=== PATIENT | female | born 2000 | race Caucasian/White ===

== ENCOUNTER 2021-09-02 08:48 | Emergency (ER) | payer MEDICAID, SELFPAY ==
[2021-09-02 08:53] VITALS: BP 123/74; PULSE 104; RESP 16; TEMP 37; O2SAT 98
[2021-09-02 08:59] VITALS: RESP 16
--- NOTE | 2021-09-02 09:40 | ED.GENADUL_ITS ---
Discharge Plan Disposition Patient Disposition: HOME Condition: Stable Discharge Details Clinical Impression: Headache, Post viral syndrome, Nausea & vomiting, COVID-19 Primary Care Provider: Unknown,Unknown ED Provider: Gaby Coronado Home Meds and New Rx's Prescriptions: New ondansetron 4 mg tablet,disintegrating 4 mg PO Q6H Qty: 10 0RF Discharge Instructions Instructions: Acute Nausea and Vomiting (ED), General Headache (ED) Additional Instructions: Take ibuprofen 4 to 600 mg every 6-8 hours as needed for headache You may take Tylenol 500 to 650 mg as needed for breakthrough pain every 6-8 hours You may take Zofran as needed for nausea and vomiting Please be reevaluated in 24 to 48 hours and return earlier should you have new or complaints Stand Alone Forms: Work Release Discharge Data Discharge Date/Time-TO BE ENTERED AT DEPARTURE: 09/02/21 10:08 Medical Decision Making Patient is pale but otherwise appears well, her vitals are stable and she is ambulatory with steady gait She has not hypoxic She denies any chest discomfort. She states that her headache is at its most bothersome to her and has been intermittent, typically alleviated with Tylenol per patient She denies sick contacts At this time I have offered her IV hydration and labs, she has declined and prefers to try outpatient [id number] medications She was given a prescription for antiemetics, Zofran which she will take as needed Of note, approximately an hour after patient departure, her COVID test did come back positive and she was made aware regarding the need to isolate I also spoke to the patient about COVID vaccines and the importance of Return discussed and patient expressed understanding Medical Records Medical records reviewed: Yes I reviewed the patient's medical records. Lab Data Lab results reviewed: Yes I reviewed the patient's lab results. HPI General Date/Time Provider Initiated Documentation: 09/02/21 09:16 . HPI Narrative: This 21-year-old female presents with headache, nausea, vomiting, fatigue. She states that she had a fever 102 2 days prior to arrival. She has not COVID vaccinated. She denies any chance of . She is currently breast- feeding. She denies any rashes or lesions. She denies any known sick contacts. She denies any vision change. She denies any chest discomfort or abdominal pain. Related Data Home Medications Medication Instructions Recorded Confirmed ondansetron 4 mg disintegrating 4 mg PO Q6H #10 tab 09/02/21 tablet Previous Rx's Medication Instructions Recorded ondansetron 4 mg disintegrating 4 mg PO Q6H #10 tab 09/02/21 tablet Allergies Allergy/AdvReac Type Severity Reaction Status Date / Time lactose AdvReac Mild abdominal Verified 09/02/21 09:52 issues General Stated Complaint: GenMedical JOSLYN: 4 Review of Systems All systems reviewed & are unremarkable except as noted in HPI and below PFSH All Active Problems (Updated 09/02/21 @ 12:32 by RODERICK Shelby) Headache (Acute) Post viral syndrome (Acute) Nausea & vomiting (Acute) COVID-19 (Acute) Short stature disorder (Acute 03/13/13) pre-pubertal labs 12/25 Routine child health exam (Acute 03/13/13) Pediatric body mass index (BMI) of 5th percentile to less than 85th percentile for age (Acute 04/14/15) Dysmenorrhea in adolescent (Acute 05/18/16) 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) Constipation (Acute 07/10/13) Anxiety (Acute 09/21/16) Medical History (Updated 09/02/21 @ 12:32 by RODERICK Shelby) Eczema Headache Innocent heart murmur cardio eval with Monty Fallon Short stature (child) Vision problem WEARS GLASSES Surgical History Tooth extraction oral surgery Family History Mother Migraines Hyperlipidemia Mental disorder DEPRESSION, ANXIETY Father Substance abuse ALCOHOL Mental disorder DEPRESSION, ANXIETY Other Diabetes MGF Essential hypertension MGM, MGF, mat uncle Malignant hyperthermia due to anesthesia MGM Heart disease MGF Migraines MGM Hyperlipidemia MGF, MGM Myocardial infarction MGF Neoplasm MGM-breast- BRECA 2 Other Healthy adult on routine physical examination Social History Smoking/Tobacco Use Status: Current every day Tobacco Type: e-cigarettes Smoking risk assessment performed?: Yes Alcohol Intake: never Substance use type: does not use Pets and animals: Yes Pets and animals: dog(s) Do you feel safe at home: Yes Do you feel safe in your relationship?: Yes Exam Const General: cooperative, comfortable and no acute distress HENMT Head: normal to inspection Other: Uvula midline, no tonsillar exudate, no erythema or edema, maintaining secretions, uvula midline Eyes Pupils: PERRL Neck Other: No meningismus Resp Effort & Inspection: normal respiratory effort Auscultation: clear to auscultation bilaterally Cardio Rate: regular rate Rhythm: regular rhythm GI Other: No abdominal tenderness Skin General skin exam: no rashes or lesions noted Neuro General: patient alert and patient oriented x3 Cranial Nerves: CN's II-XI intact bilaterally and tongue midline Sensory Exam: no sensory deficits noted Course Vital Signs Vital signs: Vital Signs Temperature 37.0 C 09/02/21 08:53 Pulse 104 H 09/02/21 08:53 Respiratory Rate 16 09/02/21 08:53 Blood Pressure 123/74 09/02/21 08:53 Pulse Oximetry 98 09/02/21 08:53 Temperature 37.0 C 09/02/21 08:53 Temperature Source Oral 09/02/21 08:53 Pulse 104 H 09/02/21 08:53 Respiratory Rate 16 09/02/21 08:59 Respiratory Effort Non-Labored 09/02/21 08:59 Respiratory Depth Normal 09/02/21 08:59 Respiratory Pattern Normal 09/02/21 08:59 Blood Pressure 123/74 09/02/21 08:53 Blood Pressure Position Sitting 09/02/21 08:53 Pulse Oximetry 98 09/02/21 08:53 Oxygen Delivery Method Room Air 09/02/21 08:53 Oxygen Flow Rate 0 09/02/21 08:53 Pain Level 7 09/02/21 08:53 Lab/Test Results Lab/Test Results: 09/02/21 08:58 Pharynx Group A Streptococcus Culture - Pending POC Strep Test-JABIER(Rapid) Start: 09/02/21 09:15 Freq: Status: Active Protocol: Document 09/02/21 09:15 (Rec: 09/02/21 09:15 [id number]) Strep test-JABIER(Rapid)-POC POC-Strep test-JABIER (Rapid) Negative POC-Strep test-JABIER (Rapid) Negative
[2021-09-02 09:50] LABS: Source Nasal/Nares
[2021-09-02] MEDS: Ibuprofen 400 MG TAB PO (09:52)
[2021-09-02] MEDS: Ondansetron O.D.T. 4 MG TABEF PO (09:52)
[2021-09-02 10:41] LABS: COVID-19 PCR POSITIVE (Negative)
== END 2021-09-02 10:08 | disposition home or self-care (01) ==
PROVIDERS: Emergency Provider Physician Assistant
DX: U07.1 COVID-19 (principal); R51.9 Headache, unspecified; R11.2 Nausea with vomiting, unspecified; R50.9 Fever, unspecified; Z28.310 Unvaccinated for COVID-19
CPT/HCPCS: 87635; 87880; 99283; 87081

== ENCOUNTER 2022-09-11 11:52 | Emergency (ER) | payer MEDICAID, SELFPAY ==
[2022-09-11 11:58] VITALS: BP 121/69; PULSE 99; RESP 20; TEMP 37.2; O2SAT 99
[2022-09-11 14:23] LABS: Bilirubin Negative (Negative); Blood Negative (Negative); Clarity Clear (Clear); Glucose Negative (Negative); Ketones Negative (Negative); Leukocyte Esterase Moderate (Negative); Nitrite Negative (Negative); Specific Gravity 1.025 (1.005-1.025); Urobilinogen 0.2 mg/dL (Up to 0.2)
[2022-09-11 14:30] LABS: Bacteria Few HPF (Negative); C & S Indicated? Yes; Casts Negative LPF (Negative); Crystals Negative HPF (Negative); Epithelial Cells Few HPF (Negative); Mucus Negative (Negative); Other Cells Negative (Negative); RBC Negative HPF (0-2); WBC 20-50 HPF (0-5)
--- NOTE | 2022-09-11 14:58 | W.ED.GENAD ---
Discharge Plan Disposition Patient Disposition: Home Condition: Stable Discharge Details Clinical Impression: UTI (urinary tract infection) ED Provider: Angel Irwin Home Meds and New Rx's Prescriptions: New cephalexin 500 mg tablet 500 mg PO QID Qty: 39 0RF Continued ondansetron 4 mg tablet,disintegrating 4 mg PO Q6H Qty: 10 0RF Discharge Instructions Instructions: Urinary Tract Infection in Women (ED) Additional Instructions: Please take full course of antibiotic as prescribed. Please contact your primary care physician to arrange follow-up. Return to the ER immediately for any worsening or new concerning symptoms. Referrals: Deborah Basilio [Emergency Nurse] - Discharge Data Discharge Date/Time-TO BE ENTERED AT DEPARTURE: 09/11/22 15:20 Medical Decision Making 22-year-old female here with suprapubic abdominal discomfort now with pain in her back. No vaginal symptoms. No dysuria or hematuria. Patient does have suprapubic tenderness. Abdominal exam otherwise benign. Urinalysis consistent with UTI. Suspect early pyelonephritis. Plan to initiate treatment with Keflex and continue 4 times a day for the next 10 days. Usual customary discharge instructions reviewed with the patient. Lab Data Lab results reviewed: Yes I reviewed the patient's lab results. Labs: 09/11/22 13:58 Urine - Reflex from Ua Urine Culture - Final Gram Positive Maribell,Mixed Laboratory Tests Range/Units 09/11/22 13:58 Urine Color (Yellow) Yellow Urine Clarity (Clear) Clear Urine pH (5-8) 6.0 Ur Specific [place] (1.005-1.025) 1.025 Urine Protein (Negative) mg/dL Negative Urine Ketones (Negative) mg/dL Negative Urine Blood (Negative) Negative Urine Nitrite (Negative) Negative Urine Bilirubin (Negative) Negative Urine Urobilinogen (Up to 0.2) mg/dL 0.2 Ur Leukocyte Esterase (Negative) Moderate H Urine RBC (0-2) HPF Negative Urine WBC (0-5) HPF 20-50 H Ur Epithelial Cells (Negative) HPF Few Urine Crystals (Negative) HPF Negative Urine Bacteria (Negative) HPF Few Urine Casts (Negative) LPF Negative Urine Mucus (Negative) Negative Urine Other (Negative) Negative Ur Culture Indicated? Yes Urine Glucose (Negative) mg/dL Negative HPI General Mode of arrival: ambulatory. Date/Time Provider Initiated Documentation: 09/11/22 12:52. Limitations to Documentation: no limitations. HPI Narrative: 22-year-old female presents with chief complaint of abdominal pain. Patient notes bilateral lower abdominal pain that started 5 days ago and has persisted. She has had some associated intermittent nausea. Patient also notes some urinary discomfort. No abnormal vaginal discharge or bleeding. Patient also now notes some pain in her low back bilaterally. Related Data Home Medications Medication Instructions Recorded Confirmed ondansetron 4 mg disintegrating 4 mg PO Q6H #10 tabs 09/02/21 09/11/22 tablet cephalexin 500 mg tablet 500 mg PO QID #39 tabs 09/11/22 Previous Rx's Medication Instructions Recorded ondansetron 4 mg disintegrating 4 mg PO Q6H #10 tabs 09/02/21 tablet cephalexin 500 mg tablet 500 mg PO QID #39 tabs 09/11/22 Allergies Allergy/AdvReac Type Severity Reaction Status Date / Time lactose AdvReac Mild abdominal Verified 09/02/21 09:52 issues General Stated Complaint: Abd Prob JOSLYN: 3 Review of Systems All systems reviewed & are unremarkable except as noted in HPI and below Constitutional Constitutional: Denies fever(s) Gastrointestinal Gastrointestinal: Reports as per HPI Genitourinary Genitourinary: Denies abnormal vaginal bleeding, Denies hematuria, Reports dysuria and Denies vaginal discharge PFSH All Active Problems COVID-19 (Acute) UTI (urinary tract infection) (Acute) Short stature disorder (Acute 03/13/13) pre-pubertal labs 12/25 Routine child health exam (Acute 03/13/13) Pediatric body mass index (BMI) of 5th percentile to less than 85th percentile for age (Acute 04/14/15) Dysmenorrhea in adolescent (Acute 05/18/16) 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) Constipation (Acute 07/10/13) Anxiety (Acute 09/21/16) Medical History Eczema Headache Innocent heart murmur cardio eval with Monty Fallon Short stature (child) Vision problem WEARS GLASSES Surgical History Tooth extraction oral surgery Family History Mother Migraines Hyperlipidemia Mental disorder DEPRESSION, ANXIETY Father Substance abuse ALCOHOL Mental disorder DEPRESSION, ANXIETY Other Diabetes MGF Essential hypertension MGM, MGF, mat uncle Malignant hyperthermia due to anesthesia MGM Heart disease MGF Migraines MGM Hyperlipidemia MGF, MGM Myocardial infarction MGF Neoplasm MGM-breast- BRECA 2 Other Healthy adult on routine physical examination Social History Smoking/Tobacco Use Status: Current every day Tobacco Type: e-cigarettes Smoking risk assessment performed?: Yes Alcohol Intake: never Substance use type: does not use Pets and animals: Yes Pets and animals: dog(s) Do you feel safe at home: Yes Do you feel safe in your relationship?: Yes Exam Const General: cooperative and no acute distress HENMT Mouth: moist mucous membranes Eyes Conjunctivae: normal conjunctivae Sclera: normal sclerae Resp Auscultation: clear to auscultation bilaterally, no rales, no rhonchi and no wheezes Cardio Rate: regular rate and not tachycardic Rhythm: regular rhythm GI Palpation: soft, not firm, no guarding, no masses, not rigid and tender (Bilateral lower abdomen) suprapubicly; with no rebound tenderness and Rovsing's sign negative Auscultation: normal bowel sounds Back/Spine/Pelvis Back: CVA tenderness (Mild lower left) Skin General skin exam: no rashes or lesions noted Neuro General: patient alert, patient awake, patient oriented x3 and tone normal Extrem General: no edema Psych Appearance: grossly normal Mental Status: mental status grossly normal Course Vital Signs Vital signs: Vital Signs Temperature 37.2 C 09/11/22 11:58 Pulse 99 H 09/11/22 11:58 Respiratory Rate 20 09/11/22 11:58 Blood Pressure 121/69 09/11/22 11:58 Pulse Oximetry 99 09/11/22 11:58 Temperature 37.2 C 09/11/22 11:58 Temperature Source Temporal Artery Scan 09/11/22 11:58 Pulse 99 H 09/11/22 11:58 Respiratory Rate 20 09/11/22 11:58 Blood Pressure 121/69 09/11/22 11:58 Blood Pressure Position Sitting 09/11/22 11:58 Pulse Oximetry 99 09/11/22 11:58 Oxygen Delivery Method Room Air 09/11/22 11:58 Oxygen Flow Rate 0 09/11/22 11:58 Lab/Test Results Lab/Test Results: 09/11/22 13:58 Urine - Reflex from Ua Urine Culture - Pending Laboratory Tests Range/Units 09/11/22 13:58 Urine Color (Yellow) Yellow Urine Clarity (Clear) Clear Urine pH (5-8) 6.0 Ur Specific [place] (1.005-1.025) 1.025 Urine Protein (Negative) mg/dL Negative Urine Ketones (Negative) mg/dL Negative Urine Blood (Negative) Negative Urine Nitrite (Negative) Negative Urine Bilirubin (Negative) Negative Urine Urobilinogen (Up to 0.2) mg/dL 0.2 Ur Leukocyte Esterase (Negative) Moderate H Urine RBC (0-2) HPF Negative Urine WBC (0-5) HPF 20-50 H Ur Epithelial Cells (Negative) HPF Few Urine Crystals (Negative) HPF Negative Urine Bacteria (Negative) HPF Few Urine Casts (Negative) LPF Negative Urine Mucus (Negative) Negative Urine Other (Negative) Negative Ur Culture Indicated? Yes Urine Glucose (Negative) mg/dL Negative POC- Test(urine) Negative
[2022-09-11] MEDS: Cephalexin 500 MG CAP PO (15:09)
[2022-09-11 15:15] VITALS: BP 115/62; PULSE 82; RESP 18; TEMP 36.8; O2SAT 99
== END 2022-09-11 15:20 | disposition home or self-care (01) ==
PROVIDERS: Emergency Provider Student in an Organized Health Care Education/Training Program
DX: N39.0 Urinary tract infection, site not specified (principal)
CPT/HCPCS: 81025; 99283; 81003; 81015; 87086; 99284

== ENCOUNTER 2023-01-25 17:25 | Emergency (ER) | payer MEDICAID, SELFPAY ==
--- NOTE | 2023-01-25 17:34 | ED.GENADUL_ITS ---
Discharge Plan Disposition Patient Disposition: Home Discharge Details Clinical Impression: Abdominal pain, Acute right lower quadrant pain Primary Care Provider: Roxanne Espana ED Provider: Patti Ryan Home Meds and New Rx's Prescriptions: No Action No Known Home Meds Discharge Instructions Instructions: Pelvic Pain in Women (ED), Abdominal Pain (ED) Additional Instructions: 1. Call your AUDIO TAPE LIBRARIAN in the morning for a follow-up appointment and recheck. 2. Alternate 1000 mg of acetaminophen every 3 hours with 400 to 600 mg of ibuprofen as needed for pain. 3. Return to the emergency department for any new or worrisome symptoms such as increasing pain fever chills or any concerns. Discharge Data Discharge Physician: Patti Ryna Medical Decision Making This is a 22-year-old female who presents with acute right lower quadrant pain. The patient is trying to get and is not using control. I am concerned she could have an ectopic . She did have a negative urine but there is a small chance that it was a false negative so we will obtain a serum . She denies any fever or chills. She has had vomiting but no diarrhea. She denies any previous similar episodes. She had a normal bowel movement today at 3:00. She did try taking 400 mg of ibuprofen without any relief. My plan is to obtain a serum qualitative hCG and if negative we will obtain a CT scan of the abdomen and pelvis with IV contrast. If her hCG is positive I will consult AUDIO TAPE LIBRARIAN. We will give her IV fluids and IV acetaminophen and ketorolac for pain. We will also check a urine for UTI. Differential Diagnosis Differential Diagnosis: Ectopic , mittelschmerz, appendicitis, ovarian cyst Medical Records Medical records reviewed: Yes I reviewed the patient's medical records. Imaging Data Radiologic Study: Imaging: CT Scan (CT abdomen pelvis with IV contrast) Radiologist's impression: No acute findings. Lab Data Lab results reviewed: Yes I reviewed the patient's lab results. Lab results narrative: No significant lab findings. Mild thrombocytosis HPI General Date/Time Provider Initiated Documentation: 01/25/23 17:34 . Limitations to Documentation: no limitations . Information obtained by: patient, RN notes reviewed and old records reviewed . HPI Narrative: Time seen was 1814 in bed 7. The patient is a 22-year-old -0-0-1 whose last menstrual period was 12/08/2022 who presents with right lower quadrant pain. She is tells me that the pain has been intermittent for several weeks and began and remains in the right lower quadrant. She states that the pain became constant yesterday and worsens over the last 12 to 24 hours. The patient is trying to get and has 1 partner and does not use control. The patient usually has regular.'s. She describes the pain as constant and fluctuating in severity from 5-7 out of 10. It is located in the right lower quadrant and is described as stabbing. The patient states the pain is constant but fluctuates in severity. It is aggravated by eating and sitting. Last week she had 1 day of nausea vomiting and diarrhea. She has not vomited for a week. She denies any change in bowel habits her last bowel movement was today at 3 PM and was normal. She denies any previous similar episodes. She denies any fevers or chills. She has no prior history of abdominal surgeries. She denies any dysuria or vaginal discharge. She tells me she only has 1 partner. Related Data Home Medications Medication Instructions Recorded Confirmed Unknown [No Known Home Meds] 01/25/23 01/25/23 Allergies Allergy/AdvReac Type Severity Reaction Status Date / Time lactose AdvReac Mild abdominal Verified 09/02/21 09:52 issues General JOSLYN: 3 Review of Systems Narrative: see hpi Constitutional Constitutional: Denies chills, Denies fever(s), Denies frequent falls and Denies headache(s) Eyes Eyes: Denies blurry vision and Denies change in vision ENT Ears, Nose, Mouth, and Throat: Denies facial pain, Denies headache(s) and Denies nasal congestion Cardiovascular Cardiovascular: Denies chest pain and Denies dyspnea Respiratory Respiratory: Denies cough and Denies dyspnea Gastrointestinal Gastrointestinal: Reports as per HPI, Reports abdominal pain, Denies hematochezia and Denies change in bowel habits Genitourinary Genitourinary: Reports as per HPI and Denies vaginal discharge Musculoskeletal Musculoskeletal: Reports system reviewed and no additional complaints, except as documented Neurologic Neurologic: Reports system reviewed and no additional complaints, except as documented, Denies frequent falls and Denies headache(s) Endocrine Endocrine: Reports system reviewed and no additional complaints, except as documented PFSH All Active Problems (Updated 01/25/23 @ 21:26 by Patti Ryan MD) COVID-19 (Acute) Abdominal pain (Acute) Acute right lower quadrant pain (Acute) Short stature disorder (Acute 03/13/13) pre-pubertal labs 12/25 Routine child health exam (Acute 03/13/13) Pediatric body mass index (BMI) of 5th percentile to less than 85th percentile for age (Acute 04/14/15) Dysmenorrhea in adolescent (Acute 05/18/16) 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) Constipation (Acute 07/10/13) Anxiety (Acute 09/21/16) Medical History (Updated 01/25/23 @ 21:26 by Patti Ryan MD) Eczema Headache Innocent heart murmur cardio eval with Monty Fallon Short stature (child) Vision problem WEARS GLASSES Surgical History Tooth extraction oral surgery Family History Mother Migraines Hyperlipidemia Mental disorder DEPRESSION, ANXIETY Father Substance abuse ALCOHOL Mental disorder DEPRESSION, ANXIETY Other Diabetes MGF Essential hypertension MGM, MGF, mat uncle Malignant hyperthermia due to anesthesia MGM Heart disease MGF Migraines MGM Hyperlipidemia MGF, MGM Myocardial infarction MGF Neoplasm MGM-breast- BRECA 2 Other Healthy adult on routine physical examination Social History Smoking/Tobacco Use Status: Current every day Tobacco Type: e-cigarettes Smoking risk assessment performed?: Yes Alcohol Intake: never Substance use type: does not use Pets and animals: Yes Pets and animals: dog(s) Do you feel safe at home: Yes Do you feel safe in your relationship?: Yes Exam Const General: cooperative, healthy appearing, comfortable, no acute distress, well developed, well groomed and well hydrated Nutritional Appearance: average body habitus and well nourished Orientation: alert, awake and oriented x3 HENMT Head: normal to inspection, normocephalic and atraumatic Ears: hearing grossly normal bilaterally and external ears normal General nose exam: external nose normal, nares normal and no nasal discharge Face and sinus: normal facial exam, sinuses nontender and face symmetric Mouth: oral mucosae normal, lip normal, tongue normal, oropharynx normal, moist mucous membranes and other (Normal phonation. The patient is handling secretions.) Throat: posterior oropharynx normal and uvula midline Eyes General: appearance normal, both eyes and all related structures Eyelids: eyelids normal Conjunctivae: conjunctivae normal Sclera: sclerae normal Cornea: corneas normal Pupils: PERRL EOM: EOM intact bilaterally and No nystagmus Neck Neck: normal visual inspection, full ROM, no lymphadenopathy, no meningeal signs, trachea midline and supple Lymphatic: no lymphadenopathy noted Chest Chest: normal inspection of the chest Resp Effort & Inspection: normal respiratory effort, able to speak in complete sentences, no audible wheezes, no nasal flaring, no respiratory distress, no retractions, no stridor, not tachypneic, no tracheal deviation, no use of accessory muscles, No prolonged expiratory phase and other (Normal inspiratory to expiratory ratio.) Auscultation: clear to auscultation bilaterally, no rales, no rhonchi, no wheezes and no rubs Tactile Fremitus: tactile fremitus absent Cardio Jugular venous pressure: no JVD Palpation: normal PMI Rate: regular rate Rhythm: regular rhythm Heart Sounds: S1 normal, S2 normal, no gallops, no murmurs and no rubs GI Inspection: normal to inspection and non-distended Palpation: soft, no hepatosplenomegaly, no guarding and tender Percussion: normal to percussion Auscultation: normal bowel sounds Other: The patient does have pain in the right lower quadrant and a positive psoas and obturator sign. No rebound or guarding. Positive Rovsing sign General: No CVA tenderness Other: Normal external genitalia Back/Spine/Pelvis Back: no CVA tenderness and No back tenderness Cervical Spine: normal cervical lordosis, cervical ROM normal, No cervical muscular tenderness, No pain with cervical ROM, No cervical spinal tenderness and No step off deformity Thoracic/Lumbar Spine: thoracic and lumbar spine normal to inspection, No thoracic spinal tenderness and No lumbar spinal tenderness Pelvis: no pain with anterior-posterior compression and no pain with lateral compression Skin General skin exam: no rashes or lesions noted, turgor normal, no petechiae, no purpura and other (Skin is normal for ethnicity.) Lesions: no lesions Rashes: no rashes Trauma: no lacerations or abrasions Neuro General: patient alert, patient awake, patient oriented x3, moves all ex tremities, no meningeal signs, no focal motor deficits and CN's II-XI intact bilaterally Cranial Nerves: CN's II-XI intact bilaterally, PERRL, accommodation normal, EOM intact bilaterally, no nystagmus, facial strength normal, tongue midline, hearing normal and no nystagmus Cognition: normal cognition Speech: speech normal Motor: muscle tone normal throughout and strength 5/5 throughout Sensory Exam: no sensory deficits noted Extrem General: normal to inspection, full ROM, capillary refill normal, no clubbing, cyanosis or edema and no calf tenderness Psych Appearance: grossly normal Affect: normal affect Attitude: cooperative Thought Process: normal Thought Content: normal Insight: insight good Judgment: judgment good Other: The patient appears to have capacity make medical decisions. Course Reevaluation(s) Time: 19:43 Reevaluation: I have updated the patient on the serum being negative and I have ordered a CT of the abdomen and pelvis with IV contrast. The patient is requesting to use the bathroom Time: 21:27 Reevaluation #2: Patient feels improved and ready for discharge. I have reviewed her lab and CT findings. The patient does have a AUDIO TAPE LIBRARIAN who she tells me she called twice and they told her to wait it out. I have advised the patient to call in the morning and make an appointment for recheck and to return here for any new or worrisome symptoms. I have advised her to alternate acetaminophen every 3 hours with ibuprofen as needed for pain. The patient voiced understanding agree with the discharge plan. All her questions and concerns were addressed prior to discharge Critical Care Time Critical Care Time Total Critical Care Time: 27 Attestation: This includes time at the bedside review of labs and radiographs
[2023-01-25 17:42] VITALS: BP 132/98; PULSE 82; RESP 18; TEMP 36.6; O2SAT 100
[2023-01-25 18:00] LABS: Bilirubin Negative (Negative); Blood Trace-intact (Negative); Clarity Clear (Clear); Glucose Negative (Negative); Ketones Trace mg/dL (Negative); Leukocyte Esterase Negative (Negative); Nitrite Negative (Negative); Specific Gravity >= 1.030 (1.005-1.025)
[2023-01-25 18:21] LABS: Bacteria Rare HPF (Negative); C & S Indicated? No; Casts Negative LPF (Negative); Crystals Negative HPF (Negative); Epithelial Cells Rare HPF (Negative); Mucus Negative (Negative); WBC 0-2 HPF (0-5)
[2023-01-25] MEDS: Ketorolac 15 MG/ML VIAL IVP (18:53)
[2023-01-25] MEDS: Normal Saline 1,000 ML 1000 ML IV ×2 (18:53→20:07)
[2023-01-25] MEDS: ACETAMINOPHEN 1,000 MG/100 ML BTL 400 MG IVPB (18:54)
[2023-01-25 19:15] LABS: ALT 17 U/L (14-59); AST 11 U/L (15-37); Albumin 4.7 g/dL (3.4-5.0); Alkaline Phosphatase 65 U/L (46-116); Anion Gap 9.9 mmol/L (3-11); BUN 13 mg/dL (7-18); Bilirubin, Total 0.3 mg/dL (0.2-1.0); CO2 27.1 mmol/L (21.0-32.0); CREATININE 0.8 mg/dL (0.55-1.02); Chloride 102 mmol/L (98-107); Estimated GFR 107.44 (mL/min/1.73m2); Glucose 86 mg/dL (74-106); Potassium 3.6 mmol/L (3.5-5.1); Sodium 139 mmol/L (136-145); Total Protein 8.7 g/dL (6.4-8.2)
[2023-01-25 19:17] LABS: HCG Qual (Serum) Negative
--- NOTE | 2023-01-25 19:30 | DI.CT_ITS ---
Exam(s) CT ABDOMEN PELVIS W EXAM: CT ABDOMEN PELVIS W CLINICAL HISTORY: RLQ pain TECHNIQUE: Imaging Protocol: Axial computed tomography images with coronal and sagittal reformatted images were created and reviewed CONTRAST MATERIAL: Intravenous: Omnipaque 350 Contrast volume:90 mL Oral: No COMPARISON: No exams were available for comparison FINDINGS: ABDOMEN: Lung Bases: Normal where visualized. Liver: Normal density. No measurable mass. Portal, Superior Mesenteric, and Splenic Veins: Unremarkable. Gallbladder and Biliary Tract: No radiodense calculus or dilation. Pancreas: Normal density, no abnormal calcifications or inflammatory process. Spleen: Normal. Adrenals: No masses seen. Kidneys: Normal size, contour and axis. No radiodense stones or obstructive uropathy. No masses seen. Abdominal Aorta: Abdominal portion non-dilated. Bowel: No obstruction or bowel wall thickening. Appendix is unremarkable. Peritoneal Cavity: No ascites, collection or mesenteric inflammatory response. No free air. Lymph Nodes: Within normal limits. Bones: Within normal limits for the patient's age. Soft Tissues: Unremarkable. PELVIS: Bladder: Symmetric distention, no gross wall thickening. Reproductive Organs: Unremarkable as visualized. Lymph Nodes: Within normal limits. Bones: Within normal limits for the patient's age. IMPRESSION: 1. No acute abdominal or pelvic process. 2. Normal appendix. RADIATION DOSE DELIVERED: 573.07mGy.cm Total DLP DATA REPOSITORY: All CT scans at this facility are submitted to the National Radiology Data Registry (NRDR) Dose Index Registry (DIR) with the [employer] (ACR). RADIATION OPTIMIZATION: All CT scans at this facility use at least one of these dose optimization te chniques: automated exposure control; mA and/or kV adjustment per patient size (includes targeted exa ms where dose is matched to clinical indication); or iterative reconstruction.
[2023-01-25] MEDS: Normal Saline - Diluent 50 ML VIAL IJ (20:24)
[2023-01-25] MEDS: Omnipaque 350 MG/ML 100 ML BTL IJ (20:25)
[2023-01-25] MEDS: Normal Saline Flush 10 ML SYR IVP (20:25)
--- NOTE | 2023-01-25 21:08 | DI.VRAD_ITS ---
PROCEDURE INFORMATION: Exam: CT Abdomen And Pelvis With Contrast Exam date and time: 01/25/2023 8:31 PM Age: 22 years old Clinical indication: Pain; Other: Rlq TECHNIQUE: Imaging protocol: Computed tomography of the abdomen and pelvis with contrast. Contrast material: OMNIPAQUE 350; Contrast volume: 100 ml; Contrast route: INTRAVENOUS (IV); COMPARISON: No relevant prior studies available. FINDINGS: Liver: Normal. No mass. Gallbladder and bile ducts: Normal. No calcified stones. No ductal dilation. Pancreas: Normal. No ductal dilation. Spleen: Normal. No splenomegaly. Adrenal glands: Normal. No mass. Kidneys and ureters: Normal. No hydronephrosis. Stomach and bowel: Unremarkable. No obstruction. No mucosal thickening. Appendix: No evidence of appendicitis. Intraperitoneal space: Unremarkable. No free air. No significant fluid collection. Vasculature: Unremarkable. No abdominal aortic aneurysm. Lymph nodes: Unremarkable. No enlarged lymph nodes. Urinary bladder: Unremarkable as visualized. Reproductive: Unremarkable as visualized. Bones/joints: Unremarkable. No acute fracture. Soft tissues: Unremarkable. IMPRESSION: No acute findings. Dictated and Authenticated by: Eyad Graham MD. Ordering:GUTIERREZ Armstrong MD
[2023-01-25 21:38] VITALS: BP 111/69; PULSE 68; RESP 16; TEMP 36.8; O2SAT 98
== END 2023-01-25 21:40 | disposition home or self-care (01) ==
PROVIDERS: Emergency Provider Emergency Medicine Emergency Medical Services; PCP Physician Assistant
DX: R10.31 Right lower quadrant pain (principal); R11.2 Nausea with vomiting, unspecified; F17.290 Nicotine dependence, other tobacco product, uncomplicated
CPT/HCPCS: 36415; 80053; 81025; 96361; 96365; 96375; 99285; 74177; 81003; 81015; 84703; J0131; J1885; J3490

== ENCOUNTER 2023-01-26 15:24 | Emergency (ER) | payer MEDICAID, SELFPAY ==
[2023-01-26 15:35] VITALS: BP 122/73; PULSE 84; RESP 18; TEMP 36.8; O2SAT 100
--- NOTE | 2023-01-26 16:07 | W.ED.GENAD ---
Discharge Plan Disposition Patient Disposition: Home Condition: Stable Discharge Details Clinical Impression: Abdominal pain Primary Care Provider: Roxanne Espana ED Provider: Fransisca Andrade Home Meds and New Rx's Prescriptions: No Action No Known Home Meds Discharge Instructions Instructions: Abdominal Pain (ED) Additional Instructions: After reviewing the CT images, the contrast may have masked kidney stones which may be causing pain. Your labs are largely within normal limits. No evidence of infection. You did have some blood in your urine yesterday. Please take Tylenol or Ibuprofen with food every 4-6 hours as needed for pain and swelling. Follow up with primary care provider in 3-5 days. Return to ED sooner if any worsening or concerns. Increase oral fluids. Take the nausea medications as directed. Referrals: Roxanne Espana MD [Primary Care Provider] - 3 days Discharge Data Discharge Date/Time-TO BE ENTERED AT DEPARTURE: 01/26/23 17:35 Medical Decision Making 22-year-old female presents to the ER for the second day in 48 hours with chief complaint of worsening abdominal pain which is now radiated over to the left lower quadrant. She reports that she does have some lower back pain right lower quadrant abdominal pain and left lower quadrant abdominal pain. She reports nausea no vomiting no diarrhea no dysuria. She has not had a period since December 08 which is not normal for her. She did have a CT abdomen pelvis yesterday which was read as negative. She did have trace blood in her urinalysis 5-10 RBCs. We will repeat labs. I did discuss that sometimes with IV contrast a kidney stone can be missed. Due to the trace blood in her urine this may be possible. Discussed follow-up care with patient and mom. Discussed lab results and home care. They verbalized understanding all their questions were answered to the best my ability. This text was generated using [employer] system, please disregard any oddities of phrase or misspellings. Lab Data Lab results reviewed: Yes I reviewed the patient's lab results. Labs: Laboratory Tests Range/Units 01/26/23 01/26/23 16:34 16:34 WBC (4.4-10.8) 10^3/uL 9.26 RBC (3.93-5.22) 10^6/uL 4.90 Hgb (11.2-15.7) g/dL 13.8 Hct (36.0-46.0) % 40.9 MCV (80-95) fL 84 MCH (27.0-33.0) pg 28.2 MCHC (32.0-36.0) % 33.7 RDW (11.7-14.6) % 12.9 Plt Count (130-400) 10^3/uL 395 MPV (8.0-11.0) fL 9.3 Immature Gran % 0.3 Neutrophils % 61.7 Lymphocytes % 29.4 Monocytes % 6.7 Eosinophils % 1.3 Basophils % 0.6 Nucleated RBC % (0.0-0.3) % 0.0 Absolute Neutrophils (1.2-6.7) 10^3/uL 5.71 Absolute Lymphocytes (1.2-3.4) 10^3/uL 2.72 Absolute Monocytes (0.1-0.8) 10^3/uL 0.62 Absolute Eosinophils (0.0-0.7) 10^3/uL 0.12 Absolute Basophils (0.0-0.2) 10^3/uL 0.06 Sodium (136-145) mmol/L 140 Potassium (3.5-5.1) mmol/L 3.5 Chloride (98-107) mmol/L 104 Carbon Dioxide (21.0-32.0) mmol/L 26.3 Anion Gap (3-11) mmol/L 9.7 BUN (7-18) mg/dL 6 L Creatinine (0.55-1.02) mg/dL 0.6 Est GFR (CKD-EPI 2020) (mL/min/1.73m2) 130.88 Glucose (74-106) mg/dL 83 Calcium (8.5-10.1) mg/dL 9.7 Magnesium (1.8-2.4) mg/dL 2.3 Total Bilirubin (0.2-1.0) mg/dL 0.3 AST (15-37) U/L 13 L ALT (14-59) U/L 16 Alkaline Phosphatase (46-116) U/L 60 Total Protein (6.4-8.2) g/dL 8.1 Albumin (3.4-5.0) g/dL 4.5 Lipase (16-77) U/L 33 HPI General Mode of arrival: ambulatory. Date/Time Provider Initiated Documentation: 01/26/23 15:43. Limitations to Documentation: no limitations. Information obtained by: patient, RN notes reviewed and old records reviewed. HPI Narrative: 22-year-old female presents to the ER for the second day in 48 hours with chief complaint of worsening abdominal pain which is now radiated over to the left lower quadrant. She reports that she does have some lower back pain right lower quadrant abdominal pain and left lower quadrant abdominal pain. She reports nausea no vomiting no diarrhea no dysuria. She has not had a period since December 08 which is not normal for her. She did have a CT abdomen pelvis yesterday which was read as negative. She did have trace blood in her urinalysis 5-10 RBCs. Related Data Home Medications Medication Instructions Recorded Confirmed Unknown [No Known Home Meds] 01/25/23 01/25/23 Allergies Allergy/AdvReac Type Severity Reaction Status Date / Time lactose AdvReac Mild abdominal Verified 09/02/21 09:52 issues General Stated Complaint: Abd Prob JOSLYN: 3 Review of Systems All systems reviewed & are unremarkable except as noted in HPI and below PFSH All Active Problems (Updated 01/26/23 @ 17:05 by Fransisca Andrade NP) COVID-19 (Acute) Abdominal pain (Acute) Acute right lower quadrant pain (Acute) Abdominal pain (Acute) Short stature disorder (Acute 03/13/13) pre-pubertal labs 12/25 Routine child health exam (Acute 03/13/13) Pediatric body mass index (BMI) of 5th percentile to less than 85th percentile for age (Acute 04/14/15) Dysmenorrhea in adolescent (Acute 05/18/16) 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) Constipation (Acute 07/10/13) Anxiety (Acute 09/21/16) Medical History (Updated 01/26/23 @ 17:05 by Fransisca Andrade NP) Eczema Headache Innocent heart murmur cardio eval with Monty Fallon Short stature (child) Vision problem WEARS GLASSES Surgical History Tooth extraction oral surgery Family History Mother Migraines Hyperlipidemia Mental disorder DEPRESSION, ANXIETY Father Substance abuse ALCOHOL Mental disorder DEPRESSION, ANXIETY Other Diabetes MGF Essential hypertension MGM, MGF, mat uncle Malignant hyperthermia due to anesthesia MGM Heart disease MGF Migraines MGM Hyperlipidemia MGF, MGM Myocardial infarction MGF Neoplasm MGM-breast- BRECA 2 Other Healthy adult on routine physical examination Social History Smoking/Tobacco Use Status: Current every day Tobacco Type: e-cigarettes Smoking risk assessment performed?: Yes Alcohol Intake: never Substance use type: does not use Housing: house Pets and animals: Yes Pets and animals: dog(s) Do you feel safe at home: Yes Do you feel safe in your relationship?: Yes Exam Narrative Exam Narrative: Constitutional: Alert and oriented x3. Appears stated age. Normal body habitus. Head: Normocephalic, no trauma. Eyes: Pupils PERRL, Red reflex noted, EOM's intact. Eyelids symmetrical without lesions, discharge, or swelling. ENT: Bilateral TM's WNL, External ear normal to inspection, no mastoid TTP, swelling, or erythema, Nasal turbinates WNL, no nasal discharge. Normal dentition, Posterior pharynx WNL, no exudate. Chest: RRR, Normal S1, S2, distal pulses intact. Resp: Lungs clear to auscultation bilaterally, no wheezes, rales, or rhonchi. Abdomen: Soft, non-distended, Normoactive bowel sounds all 4 quads. Tenderness right lower quadrant and left lower quadrant with palpation. No guarding no masses palpated. Musculoskeletal: Normal gait, 5/5 strength to all four extremities. Skin: No suspicious rashes or lesions. Capillary refill less than 2 sec. Neurologic: Cranial nerves II-XII intact. Alert and oriented x 3. Motor: No deficits noted. Sensory: Intact bilaterally all 4 extremities. Hematologic/Lymphatic: No ecchymosis, no lymphadenopathy. Course Vital Signs Vital signs: Vital Signs Temperature 36.8 C 01/26/23 15:35 Pulse 84 01/26/23 15:35 Respiratory Rate 18 01/26/23 15:35 Blood Pressure 122/73 01/26/23 15:35 Pulse Oximetry 100 01/26/23 15:35 Temperature 36.8 C 01/26/23 15:35 Temperature Source Oral 01/26/23 15:35 Pulse 84 01/26/23 15:35 Respiratory Rate 18 01/26/23 15:35 Blood Pressure 122/73 01/26/23 15:35 Blood Pressure Position Sitting 01/26/23 15:35 Pulse Oximetry 100 01/26/23 15:35 Oxygen Delivery Method Room Air 01/26/23 15:35 Oxygen Flow Rate 0 01/26/23 15:35 Pain Level 6 01/26/23 15:35 Lab/Test Results Lab/Test Results: POC- Test(urine) Negative
[2023-01-26 16:41] LABS: Abs Immature Grans 0.03 10^3/uL (0.0-0.06); Absolute Basophil Count 0.06 10^3/uL (0.0-0.2); Absolute Eosinophil Count 0.12 10^3/uL (0.0-0.7); Absolute Lymphocyte Count 2.72 10^3/uL (1.2-3.4); Absolute Monocyte Count 0.62 10^3/uL (0.1-0.8); Absolute Neutrophil Count 5.71 10^3/uL (1.2-6.7); Basophils % 0.6; Eosinophils % 1.3; HCT 40.9 % (36.0-46.0); HGB 13.8 g/dL (11.2-15.7); Immature Grans % 0.3; Lymphocytes % 29.4; MCH 28.2 pg (27.0-33.0); MCHC 33.7 % (32.0-36.0); MCV 84 fL (80-95); MPV 9.3 fL (8.0-11.0); Monocytes % 6.7; Neutrophils % 61.7; Platelet Count 395 10^3/uL (130-400); RDW 12.9 % (11.7-14.6); RDW-SD 39.5 fL; WBC 9.26 10^3/uL (4.4-10.8)
[2023-01-26 16:59] LABS: ALT 16 U/L (14-59); AST 13 U/L (15-37); Albumin 4.5 g/dL (3.4-5.0); Alkaline Phosphatase 60 U/L (46-116); Anion Gap 9.7 mmol/L (3-11); BUN 6 mg/dL (7-18); Bilirubin, Total 0.3 mg/dL (0.2-1.0); CO2 26.3 mmol/L (21.0-32.0); CREATININE 0.6 mg/dL (0.55-1.02); Calcium 9.7 mg/dL (8.5-10.1); Chloride 104 mmol/L (98-107); Estimated GFR 130.88 (mL/min/1.73m2); Glucose 83 mg/dL (74-106); Lipase 33 U/L (16-77); Magnesium 2.3 mg/dL (1.8-2.4); Potassium 3.5 mmol/L (3.5-5.1); Sodium 140 mmol/L (136-145); Total Protein 8.1 g/dL (6.4-8.2)
[2023-01-26 17:34] VITALS: BP 124/78; PULSE 75; RESP 18; TEMP 36.8; O2SAT 98
== END 2023-01-26 17:35 | disposition home or self-care (01) ==
PROVIDERS: Emergency Provider Registered Nurse Emergency; PCP Physician Assistant
DX: R10.30 Lower abdominal pain, unspecified (principal)
CPT/HCPCS: 36415; 80053; 81025; 83690; 99283; 83735; 85025; 99284

== ENCOUNTER 2023-07-03 17:10 | Emergency (ER) | payer MEDICAID, SELFPAY ==
[2023-07-03 17:29] VITALS: BP 107/65; PULSE 93; RESP 16; TEMP 37.2; O2SAT 98
--- NOTE | 2023-07-03 18:46 | ED.GENADUL_ITS ---
HPI General Mode of arrival: ambulatory . Date/Time Provider Initiated Documentation: 07/03/23 17:38 . Limitations to Documentation: no limitations . Information obtained by: patient, family, RN notes reviewed and old records rev iewed . HPI Narrative: 23 year old female presents with sore throat which began yesterday, has not had any thing for the pain, reports ear popping at [place] yesterday.Posterior oropharynx red and slightly swollen on left, uvula midline, no exudate. Related Data Home Medications Medication Instructions Recorded Confirmed escitalopram oxalate 10 mg tablet 10 mg PO DAILY 07/03/23 07/03/23 Allergies Allergy/AdvReac Type Severity Reaction Status Date / Time lactose AdvReac Mild abdominal Verified 07/03/23 17:28 issues General Stated Complaint: Sorethroat JOSLYN: 4 Review of Systems All systems reviewed & are unremarkable except as noted in HPI and below ENT Ears, Nose, Mouth, and Throat: Reports as per HPI and Reports sore throat Exam HENMT Mouth: oral mucosae normal, lip normal and tongue normal Throat: posterior oropharynx abnormal erythema; no cobblstoning and no exudates Course Vital Signs Vital signs: Vital Signs Temperature 37.2 C 07/03/23 17:29 Pulse 93 H 07/03/23 17:29 Respiratory Rate 16 07/03/23 17:29 Blood Pressure 107/65 07/03/23 17:29 Pulse Oximetry 98 07/03/23 17:29 Temperature 37.2 C 07/03/23 17:29 Temperature Source Temporal Artery Scan 07/03/23 17:29 Pulse 93 H 07/03/23 17:29 Respiratory Rate 16 07/03/23 17:29 Blood Pressure 107/65 07/03/23 17:29 Blood Pressure Position Sitting 07/03/23 17:29 Pulse Oximetry 98 07/03/23 17:29 Oxygen Delivery Method Room Air 07/03/23 17:29 Oxygen Flow Rate 0 07/03/23 17:29 Pain Level 7 07/03/23 17:29 Lab/Test Results Lab/Test Results: 07/03/23 18:01 Tonsil - Not Specified Group A Streptococcus Culture - Pending POC Strep Test-JABIER(Rapid) Start: 07/03/23 17:32 Freq: .Rapid Strep Test Status: Active Protocol: Document 07/03/23 17:58 ANU (Rec: 07/03/23 17:58 [email or web address] [id number]) Strep test-JABIER(Rapid)-POC POC-Strep test-JABIER (Rapid) Negative POC-Strep test-JABIER (Rapid) Negative Medical Decision Making 23 year old female presents with sore throat which began yesterday, has not had any thing for the pain, reports ear popping at [place] yesterday.Posterior oropharynx red and slightly swollen on left, uvula midline, no exudate. Negative rapid strep, rapid Covid and flu ordered, Ibuprofen and Dexamethasone ordered. Negative flu and Covid POC. Will discharge with salt water gargles and home care. This text was generated using [employer] system, please disregard any oddities of phrase or misspellings. Lab Data Lab results reviewed: Yes I reviewed the patient's lab results. 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) Constipation (Acute 07/10/13) Anxiety (Acute 09/21/16) Medical History (Updated 07/03/23 @ 19:26 by Fransisca Andrade NP) Innocent heart murmur cardio eval with Monty Fallon Headache Eczema Vision problem WEARS GLASSES Short stature (child) Surgical History Tooth extraction oral surgery Family History Mother Migraines Hyperlipidemia Mental disorder DEPRESSION, ANXIETY Father Substance abuse ALCOHOL Mental disorder DEPRESSION, ANXIETY Other Diabetes MGF Essential hypertension MGM, MGF, mat uncle Malignant hyperthermia due to anesthesia MGM Heart disease MGF Migraines MGM Hyperlipidemia MGF, MGM Myocardial infarction MGF Neoplasm MGM-breast- BRECA 2 Other Healthy adult on routine physical examination Social History Smoking/Tobacco Use Status: Current every day Tobacco Type: e-cigarettes Smoking risk assessment performed?: Yes Alcohol Intake: never Substance use type: does not use Housing: house Pets and animals: Yes Pets and animals: dog(s) Do you feel safe at home: Yes Do you feel safe in your relationship?: Yes Discharge Plan Disposition Patient Disposition: Home Condition: Stable Discharge Details Clinical Impression: Pharyngitis Primary Care Provider: Roxanne Espana ED Provider: Fransisca Andrade Home Meds and New Rx's Prescriptions: No Action escitalopram oxalate 10 mg tablet 10 mg PO DAILY Patient Comments: TAKE 1 TABLET BY MOUTH DAILY Discharge Instructions Instructions: Pharyngitis (ED) Additional Instructions: Gargle with warm salt water three times daily as needed. No evidence of strep, flu, or covid. Follow up with primary care provider in 3-5 days. Return to ED sooner if any worsening or concerns. Increase oral fluids. Please take Tylenol or Ibuprofen with food every 4-6 hours as needed for pain and swelling. Referrals: Roxanne Espana MD [Primary Care Provider] - 5 days
[2023-07-03] MEDS: Dexamethasone 10 MG/ML VIAL PO (19:40)
[2023-07-03] MEDS: Ibuprofen 600 MG TAB PO (19:40)
== END 2023-07-03 19:42 | disposition home or self-care (01) ==
PROVIDERS: Emergency Provider Registered Nurse Emergency; PCP Physician Assistant
DX: J02.9 Acute pharyngitis, unspecified (principal); R51.9 Headache, unspecified; F17.290 Nicotine dependence, other tobacco product, uncomplicated
CPT/HCPCS: 87426; 87880; 99283; 87081; J1100

== ENCOUNTER 2023-08-17 08:43 | Emergency (ER) | payer MEDICAID, SELFPAY ==
[2023-08-17] VITALS (16 sets, daily range): BP systolic 107–116; BP diastolic 55–62; PULSE 83–110; RESP 14–23; TEMP 36.7; O2SAT 96–100
--- NOTE | 2023-08-17 09:06 | W.ED.GENAD ---
Discharge Plan Disposition Patient Disposition: Home Condition: Improving Discharge Details Clinical Impression: Nausea, vomiting, and diarrhea, Abdominal pain Primary Care Provider: Roxanne Espana ED Provider: Pita Green Home Meds and New Rx's Prescriptions: New loperamide [Imodium A-D] 2 mg capsule 2 mg PO Q4H PRNQty: 20 0RF Rx Instructions: administer after each loose stool until symptoms controlled; do not exceed 8 mg per 24 hrs ondansetron 4 mg tablet,disintegrating 4 mg PO Q6H PRNQty: 14 0RF No Action escitalopram oxalate 10 mg tablet 15 mg PO DAILY Patient Comments: TAKE 1 TABLET BY MOUTH DAILY Discharge Instructions Instructions: Acute Nausea and Vomiting (ED), Abdominal Pain (ED) Stand Alone Forms: Work Release Referrals: Roxanne Espana MD [Primary Care Provider] - 3 days Discharge Data Discharge Physician: Pita Green [facility] General Date/Time Provider Initiated Documentation: 08/17/23 08:46. HPI Narrative: 23-year-old female presents for evaluation of nausea, vomiting, diarrhea. Patient states that 2 days ago she had several episodes of vomiting diarrhea. Her symptoms improved yesterday however they began again at 1 AM. She has had consistent vomiting and diarrhea since that time. Denies any bright red blood per rectum. No hematemesis. She does feel like she has been having some chills. No fever. She has pain throughout her entire abdomen. She currently has her menstrual cycle. She has had it for the last 11 days. Denies any cough or cold. No shortness of breath. No chest pain. She states that she does not believe she is having any difficulty urinating however her stool is liquidy at this time and she has diarrhea every time she goes to the bathroom. She did have surgery after childbirth secondary to a placenta issue but otherwise no abdominal surgeries. No history of gallbladder disease. Related Data Home Medications Medication Instructions Recorded Confirmed escitalopram oxalate 10 mg tablet 15 mg PO DAILY 07/03/23 08/17/23 loperamide 2 mg capsule (Imodium 2 mg PO Q4H PRN #20 caps 08/17/23 A-D) ondansetron 4 mg disintegrating 4 mg PO Q6H PRN #14 tabs 08/17/23 tablet Previous Rx's Medication Instructions Recorded loperamide 2 mg capsule (Imodium 2 mg PO Q4H PRN #20 caps 08/17/23 A-D) ondansetron 4 mg disintegrating 4 mg PO Q6H PRN #14 tabs 08/17/23 tablet Allergies Allergy/AdvReac Type Severity Reaction Status Date / Time lactose AdvReac Mild abdominal Verified 07/03/23 17:28 issues General Stated Complaint: Abd Prob JOSLYN: 3 Review of Systems Narrative: Remainder of review of systems otherwise negative except for as noted in the HPI x 10. Exam Narrative Exam Narrative: General: non-toxic, no respiratory distress, uncomfortable HEENT: normocephalic, atraumatic, lids and lashes normal, PERRL, EOMI, anicteric sclera, no conjunctival injection, moist oral mucosa Card: Tachycardic, regular, S1S2, no murmurs, rubs, or gallops Lungs: good air entry, clear to auscultation bilaterally. no wheezes, rales, rhonchi, or retractions Abd: soft, non-tender, non-distended, normal bowel sounds, no rebound or guarding, no peritoneal signs, no CVAT Musculoskeletal: full range of motion of arms and legs, no tenderness to palpation. no clubbing, cyanosis, or edema Neurologic: appropriate for age, strength normal Psych: alert and oriented Skin: no petechiae, no lesions, warm and dry Course Vital Signs Vital signs: Vital Signs Temperature 36.7 C 08/17/23 08:45 Pulse 106 H 08/17/23 08:45 Respiratory Rate 18 08/17/23 08:45 Blood Pressure 116/62 08/17/23 08:45 Pulse Oximetry 98 08/17/23 08:45 Temperature 36.7 C 08/17/23 08:45 Temperature Source Temporal Artery Scan 08/17/23 08:45 Pulse 106 H 08/17/23 08:45 Respiratory Rate 18 08/17/23 08:45 Respiratory Effort Normal, Non-Labored 08/17/23 08:49 Blood Pressure 116/62 08/17/23 08:45 Blood Pressure Position Sitting 08/17/23 08:45 Pulse Oximetry 98 08/17/23 08:45 Oxygen Delivery Method Room Air 08/17/23 08:45 Oxygen Flow Rate 0 08/17/23 08:45 Pain Level 10 08/17/23 08:55 Medical Decision Making 23-year-old female presents for evaluation of nausea, vomiting, diarrhea, diffuse abdominal pain. Laboratory studies show elevated white count. Patient was tachycardic. She received 2 L IV fluid. She did have improvement of symptoms. Given abdominal pain and elevated white count CT abdominal pelvis was obtained. Unfortunately when she went to get the CT done images of her brain were done. I did disclose this to patient and her mother. She will not be charged for this exam. The images were read by radiology and unremarkable. She did have the CT of her abdomen pelvis which shows likely enteritis. Patient was able to tolerate p.o. while in the emergency department. Patient?s symptoms improved after ED medication. Abdominal exam is non-acute and patient is in no distress. Will discharge home. Patient to push fluids and advance diet as tolerated. Patient is to follow up with PMD. Patient understands that symptoms may worsen and the testing in the emergency department does not rule out the early stages of a possible surgical condition. Will return to ED for worsening pain, migration of pain to right lower abdomen, high fevers, or intractable vomiting. Quality: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) Constipation (Acute 07/10/13) Anxiety (Acute 09/21/16) Medical History (Updated 08/17/23 @ 12:43 by Pita Green MD) Innocent heart murmur cardio eval with Monty Fallon Headache Eczema Vision problem WEARS GLASSES Short stature (child) Surgical History Tooth extraction oral surgery Family History Mother Migraines Hyperlipidemia Mental disorder DEPRESSION, ANXIETY Father Substance abuse ALCOHOL Mental disorder DEPRESSION, ANXIETY Other Diabetes MGF Essential hypertension MGM, MGF, mat uncle Malignant hyperthermia due to anesthesia MGM Heart disease MGF Migraines MGM Hyperlipidemia MGF, MGM Myocardial infarction MGF Neoplasm MGM-breast- BRECA 2 Other Healthy adult on routine physical examination Social History Smoking/Tobacco Use Status: Current every day Tobacco Type: e-cigarettes Smoking risk assessment performed?: Yes Alcohol Intake: never Substance use type: does not use Housing: house Pets and animals: Yes Pets and animals: dog(s) Do you feel safe at home: Yes Do you feel safe in your relationship?: Yes
[2023-08-17 09:11] LABS: Abs Immature Grans 0.04 10^3/uL (0.0-0.06); Absolute Monocyte Count 0.96 10^3/uL (0.1-0.8); Basophils % 0.5; Eosinophils % 0.3; HCT 52.1 % (36.0-46.0); HGB 17.2 g/dL (11.2-15.7); Immature Grans % 0.3; Lymphocytes % 3.4; MCH 28.5 pg (27.0-33.0); MCV 86 fL (80-95); MPV 9.4 fL (8.0-11.0); Monocytes % 6.5; Platelet Count 489 10^3/uL (130-400); RBC 6.03 10^6/uL (3.93-5.22); RDW 13.5 % (11.7-14.6); WBC 14.71 10^3/uL (4.4-10.8)
[2023-08-17 09:12] LABS: Absolute Basophil Count 0.07 10^3/uL (0.0-0.2); Absolute Eosinophil Count 0.04 10^3/uL (0.0-0.7); Absolute Neutrophil Count 13.09 10^3/uL (1.2-6.7)
[2023-08-17] MEDS: Normal Saline 1,000 ML 1000 ML IV (09:16)
[2023-08-17] MEDS: Ondansetron 4 MG/2 ML VIAL IVP (09:17)
[2023-08-17 09:27] LABS: HCG Qual (Serum) Negative
[2023-08-17 09:37] LABS: ALT 30 U/L (14-59); AST 19 U/L (15-37); Albumin 4.8 g/dL (3.4-5.0); Alkaline Phosphatase 88 U/L (46-116); Anion Gap 15.3 mmol/L (3-11); BUN 17 mg/dL (7-18); Bilirubin, Total 0.9 mg/dL (0.2-1.0); CO2 23.7 mmol/L (21.0-32.0); CREATININE 0.8 mg/dL (0.55-1.02); Calcium 9.8 mg/dL (8.5-10.1); Chloride 103 mmol/L (98-107); Estimated GFR 106.77 (mL/min/1.73m2); Glucose 121 mg/dL (74-106); Lipase 26 U/L (16-77); Magnesium 2.1 mg/dL (1.8-2.4); Potassium 4.1 mmol/L (3.5-5.1); Sodium 142 mmol/L (136-145); Total Protein 9.1 g/dL (6.4-8.2)
--- NOTE | 2023-08-17 10:30 | DI.CT_ITS ---
Exam(s) CT ABDOMEN PELVIS W EXAM: CT ABDOMEN PELVIS W CLINICAL HISTORY: abdominal pain, vomiting. TECHNIQUE: Imaging Protocol: Axial computed tomography images with coronal and sagittal reformatted images were created and reviewed CONTRAST MATERIAL: Intravenous: Omnipaque-350 100cc Oral: None COMPARISON: CT CT ABDOMEN PELVIS W from 01/25/2023 FINDINGS: VISUALIZED LUNG BASES: No nodules nor pleural effusions evident. ABDOMEN: There is no ascites. LIVER: There are no focal hepatic lesions evident. No dilated intrahepatic ducts. GALLBLADDER/BILIARY: No obvious gallbladder pathology. CBD is not dilated. PANCREAS: No evidence of pancreatic mass nor dilatation of the pancreatic duct. SPLEEN: Spleen is not enlarged. No obvious intrasplenic lesions. Splenic and portal veins are paten t. ADRENALS: There are no significant adrenal masses. KIDNEYS:No cysts evident. No solid renal masses. No calculi nor hydronephrosis.. ABDOMINAL AORTA: Abdominal aorta is not enlarged. LYMPH NODES:There is no retroperitoneal nor paraaortic adenopathy. ABDOMINAL WALL: No evidence of significant anterior abdominal wall nor inguinal hernia. GI: Left-sided jejunal loops appear unremarkable. The more mid and distal small bowel loops are flui d-filled and minimally prominent caliber consistent with element of enteritis. The stomach is not di stended. There is also fluid in the proximal large bowel-ascending colon. The appendix is difficult to identify is separate structure but there is no evidence of obvious acute appendicitis. PELVIS: GI: No evidence of appendicitis.No evidence of sigmoid diverticulitis. LYMPH NODES: There is no intrapelvic nor inguinal adenopathy. REPRODUCTIVE: Age-appropriate URINARY BLADDER: No calculi nor obvious masses evident OSSEOUS: No fractures and no significant osseous lesions. IMPRESSION: 1. Multiple fluid-filled upper normal limits diameter small bowel loops as well as some fluid in the right-side of the colon. No obvious bowel obstruction. Findings are consistent with an enteritis pa ttern. 2. Appendix is not identified but there is no obvious evidence of acute appendicitis. RADIATION DOSE DELIVERED: Total DLP DATA REPOSITORY: All CT scans at this facility are submitted to the National Radiology Data Registry (NRDR) Dose Index Registry (DIR) with the [employer] ([employer]). RADIATION OPTIMIZATION: All CT scans at this facility use at least one of these dose optimization te chniques: automated exposure control; mA and/or kV adjustment per patient size (includes targeted exa ms where dose is matched to clinical indication); or iterative reconstruction.
--- NOTE | 2023-08-17 11:00 | DI.CT_ITS ---
Exam(s) CT HEAD WO EXAM: CT HEAD WO CLINICAL HISTORY: wrong exam completed. TECHNIQUE: Imaging Protocol: Axial computed tomography images with coronal and sagittal reformatted images were created and reviewed COMPARISON: No exams were available for comparison FINDINGS: There are no skull fractures. There is no fluid in the visualized paranasal sinuses. There is no evidence of intracranial hemorrhage, mass effect, or shift of midline structures. There are no extra-axial fluid collections. The ventricles are not enlarged or shifted and there is no blo od within the ventricular system nor within the basal cisterns. IMPRESSION: No acute intracranial findings on this noninfused CT scan of the brain. Called by myself to ER. RADIATION DOSE DELIVERED: Total DLP DATA REPOSITORY: All CT scans at this facility are submitted to the National Radiology Data Registry (NRDR) Dose Index Registry (DIR) with the [employer] ([employer]). RADIATION OPTIMIZATION: All CT scans at this facility use at least one of these dose optimization te chniques: automated exposure control; mA and/or kV adjustment per patient size (includes targeted exa ms where dose is matched to clinical indication); or iterative reconstruction.
[2023-08-17] MEDS: Normal Saline - Diluent 50 ML VIAL IJ (11:06)
[2023-08-17] MEDS: Omnipaque 350 MG/ML 500 ML BTL-Imaging package 76 ML IJ (11:08)
[2023-08-17 12:24] LABS: Bilirubin Negative (Negative); Blood Small (Negative); Clarity Clear (Clear); Glucose Negative (Negative); Ketones Negative (Negative); Leukocyte Esterase Negative (Negative); Nitrite Negative (Negative); Specific Gravity <= 1.005 (1.005-1.025); Urobilinogen 0.2 mg/dL (Up to 0.2)
[2023-08-17 12:32] LABS: Epithelial Cells Negative HPF (Negative); Other Cells Negative (Negative); WBC Negative HPF (0-5)
[2023-08-17 12:33] LABS: Bacteria Rare HPF (Negative); C & S Indicated? No; Casts Negative LPF (Negative); Crystals Negative HPF (Negative); Mucus Negative (Negative)
[2023-08-17 12:49] LABS: *AMPHETAMINES SCREEN URINE Negative (Negative); *BARBITURATES SCREEN URINE Negative (Negative); *BENZODIAZEPINES SCREEN URINE Negative (Negative); Cannabinoids THC Positive (Negative); Cocaine Screen,Urine Negative (Negative); METHADONE URINE SCREEN Negative (Negative); OPIATES URINE SCREEN Negative (Negative)
[2023-08-17 12:54] LABS: Tricyclic Antidepressants Negative (Negative)
== END 2023-08-17 13:35 | disposition home or self-care (01) ==
PROVIDERS: Emergency Provider Emergency Medicine Emergency Medical Services; PCP Physician Assistant
DX: R11.2 Nausea with vomiting, unspecified (principal); R19.7 Diarrhea, unspecified; F17.290 Nicotine dependence, other tobacco product, uncomplicated
CPT/HCPCS: 36415; 80053; 80307; 83690; 96361; 96374; 99285; 70450; 74177; 81003; 81015; 83735; 84703; 85025; 99284; J2405

== ENCOUNTER 2024-05-15 13:56 | Emergency (ER) | payer MEDICAID, SELFPAY ==
[2024-05-15 14:16] VITALS: BP 111/74; PULSE 98; RESP 16; TEMP 36.8; O2SAT 96
[2024-05-15 14:55] VITALS: BP 111/74; PULSE 98; RESP 16; TEMP 36.8; O2SAT 96
--- NOTE | 2024-05-15 15:10 | ED.GENADUL_ITS ---
Discharge Plan Disposition Patient Disposition: Home Condition: Good Discharge Details Clinical Impression: Viral URI with cough Primary Care Provider: Roxanne Espana ED Provider: Marshall Santos Home Meds and New Rx's Prescriptions: New azithromycin 250 mg tablet See Rx Instructions .ROUTE .COMPLEX Qty: 6 0RF Rx Instructions: For 250 mg dose pack: take 500 mg today (day 1), then 250 mg for 4 days (days 2-5) No Action escitalopram oxalate 10 mg tablet 15 mg PO DAILY Patient Comments: TAKE 1 TABLET BY MOUTH DAILY loperamide [Imodium A-D] 2 mg capsule 2 mg PO Q4H PRNQty: 20 0RF Rx Instructions: administer after each loose stool until symptoms controlled; do not exceed 8 mg per 24 hrs ondansetron 4 mg tablet,disintegrating 4 mg PO Q6H PRNQty: 14 0RF Discharge Instructions Instructions: Upper Respiratory Infection ED Additional Instructions: At this time your symptoms appear consistent with viral upper respiratory infection. Please take the inhaler, 2 puffs every 6 hours for the next week. Please continue to use Tylenol and Motrin as needed for pain. If your symptoms are not improving at all over the next 2 to 3 days and please take the antibiotic that was sent to your pharmacy on file. This antibiotic can interact with escitalopram, we would recommend that you hold on escitalopram if you take this antibiotic. If you notice any worsening of your symptoms, or any new symptoms such as vomiting, diarrhea, fever, chills, shortness of breath, chest pain, numbness, weakness, or fainting or worsening neck pain or headache, please return immediately to the emergency department for reevaluation. Please follow up with your primary care provider as soon as possible for reassessment and reevaluation. As always, it was a pleasure participating in your medical care today. Referrals: Roxanne Espana [Primary Care Provider] - Discharge Data Discharge Date/Time-TO BE ENTERED AT DEPARTURE: 05/15/24 15:28 HPI General Date/Time Provider Initiated Documentation: 05/15/24 15:10 . HPI Narrative: 24-year-old female with a past medical history of anxiety, presents today for evaluation of runny nose, congestion, cough, not feeling well for the last 4 days. She admits to subjective fever. She denies any vomiting or diarrhea. Her cough is productive with occasional green tinge. She was recently swabbed for flu and was negative. Patient was recently in [place], she was not found to have any concerning abnormalities at that time. Patient denies any chest pain. She does admit to mild achiness in her neck. No other complaints at this time. No vision changes. No neck stiffness. Related Data Home Medications ?Medication ?Instructions ?Recorded ?Confirmed escitalopram oxalate 10 mg tablet 15 mg PO DAILY 07/03/23 05/15/24 loperamide 2 mg capsule (Imodium 2 mg PO Q4H PRN #20 caps 08/17/23 05/15/24 A-D) ondansetron 4 mg disintegrating 4 mg PO Q6H PRN #14 tabs 08/17/23 05/15/24 tablet azithromycin 250 mg tablet See Rx Instructions PO .COMPLEX #6 05/15/24 tabs Previous Rx's ?Medication ?Instructions ?Recorded loperamide 2 mg capsule (Imodium 2 mg PO Q4H PRN #20 caps 08/17/23 A-D) ondansetron 4 mg disintegrating 4 mg PO Q6H PRN #14 tabs 08/17/23 tablet azithromycin 250 mg tablet See Rx Instructions PO .COMPLEX #6 05/15/24 tabs Allergies Allergy/AdvReac Type Severity Reaction Status Date / Time lactose AdvReac Mild abdominal Verified 05/15/24 14:21 issues General Stated Complaint: RespSymp JOSLYN: 4 Exam Narrative Exam Narrative: 1.Const: Well-nourished, Well-developed, appearing stated age 2.Eyes: PERRL, no conjunctival injection, and symmetrical lids. 3.ENT: Atraumatic external nose and ears. Moist MM. Neck: Symmetric, trachea midline, No thyromegaly. Patient demonstrates good movement of cervical neck. There is no nuchal rigidity, no nuchal tenderness. Patient is able to flex the neck without any difficulty or significant pain. Negative Kernig's and Brudzinski sign. No evidence of otitis media. Tympanic membranes are nova and pearly. Minimal erythema in the posterior oropharynx. Tonsils are nonenlarged. No exudate 4.CVS: +S1/S2, Peripheral pulses 2+ and equal in all extremities. Brisk capillary refill in all extremities. 5.RESP: Minimal wheeze, potential mild crackle in the right midlung field. 6.GI: Soft, Nontender/Nondistended, No hepatosplenomegaly. No guarding or rebound. 7.MSK: Normocephalic/Atraumatic, Extremities w/o deformity or ttp No cyanosis or clubbing, Normal movement of all extremities 8.Skin: Warm, Dry. No rashes or lesions. 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 Sensation grossly intact, no focal neurologic deficits. 10.Psych: (AAO) x3. Appropriate mood and affect Course Vital Signs Vital signs: Vital Signs Temperature 36.8 C 05/15/24 14:16 Pulse 98 H 05/15/24 14:16 Respiratory Rate 16 05/15/24 14:16 Blood Pressure 111/74 05/15/24 14:16 Pulse Oximetry 96 05/15/24 14:16 Temperature 36.8 C 05/15/24 14:55 Temperature Source Oral 05/15/24 14:55 Pulse 98 H 05/15/24 14:55 Respiratory Rate 16 05/15/24 14:55 Respiratory Effort Normal, Non-Labored 05/15/24 14:55 Respiratory Depth Normal 05/15/24 14:55 Blood Pressure 111/74 05/15/24 14:55 Blood Pressure Position Sitting 05/15/24 14:55 Pulse Oximetry 96 05/15/24 14:55 Oxygen Delivery Method Room Air 05/15/24 14:55 Oxygen Flow Rate 0 05/15/24 14:55 Pain Level 0 05/15/24 14:55 Medical Decision Making 24-year-old female with a past medical history of anxiety, presents today for evaluation of runny nose, congestion, cough, not feeling well for the last 4 days. She admits to subjective fever. She denies any vomiting or diarrhea. Her cough is productive with occasional green tinge. She was recently swabbed for flu and was negative. Patient was recently in [place], she was not found to have any concerning abnormalities at that time. Patient denies any chest pain. She does admit to mild achiness in her neck. No other complaints at this time. No vision changes. No neck stiffness. Exam demonstrates well-appearing female, no evidence of otitis media. No evidence of erythema in the posterior oropharynx. Lungs demonstrate minimal wheeze, patient does smoke. There is slight potential crackle. However no hypoxemia or persistent rhonchi or rales throughout to suggest pneumonia. Will recommend continued supportive therapy. Will recommend smoking cessation. Patient was given inhaler for home use. Suspect viral etiology, however discussed with the patient that she does not have improvement of her symptoms and the masks 48 to 72 hours and that may represent worsening potential bacterial process especially in conjunction with her history of smoking. Patient will be given a prescription for azithromycin, recommend holding off and watchful waiting to see if her symptoms improve from this viral component. Discussed red flags for which to return. Symptoms inconsistent with PE with no pleuritic chest pain or control use. Symptoms inconsistent with ACS. No evidence of pneumothorax. I have extensively reviewed the treatment plan and discharge instructions with the patient. I have addressed all patient concerns at this time. The patient was made aware of what symptoms to monitor for that would warrant a return to the emergency department. Discussed the plan with the patient, they demonstrate verbal understanding and agreement with our assessment and plan at this time. The documentation in this chart was dictated using [employer] dictation software. Please excuse any dictation errors. 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) Constipation (Acute 07/10/13) Anxiety (Acute 09/21/16) Medical History (Updated 05/15/24 @ 15:10 by Marshall Santos DO) Innocent heart murmur cardio eval with Monty Fallon Headache Eczema Vision problem WEARS GLASSES Short stature (child) Surgical History Tooth extraction oral surgery Family History Mother Migraines Hyperlipidemia Mental disorder DEPRESSION, ANXIETY Father Substance abuse ALCOHOL Mental disorder DEPRESSION, ANXIETY Other Diabetes MGF Essential hypertension MGM, MGF, mat uncle Malignant hyperthermia due to anesthesia MGM Heart disease MGF Migraines MGM Hyperlipidemia MGF, MGM Myocardial infarction MGF Neoplasm MGM-breast- BRECA 2 Other Healthy adult on routine physical examination Social History Smoking/Tobacco Use Status: Current every day Tobacco Type: e-cigarettes Smoking risk assessment performed?: Yes Alcohol Intake: never Drug use: Never Substance use type: does not use Housing: house Pets and animals: Yes Pets and animals: dog(s) Do you feel safe at home: Yes Do you feel safe in your relationship?: Yes
[2024-05-15] MEDS: Inhaler, Assist Device 1 EACH MC (15:27)
[2024-05-15] MEDS: Albuterol HFA 8 GM 60 PUFF INH IH (15:27)
== END 2024-05-15 15:28 | disposition home or self-care (01) ==
PROVIDERS: Emergency Provider Student in an Organized Health Care Education/Training Program; PCP Emergency Medicine
DX: J06.9 Acute upper respiratory infection, unspecified (principal); R05.1 Acute cough; F17.290 Nicotine dependence, other tobacco product, uncomplicated
CPT/HCPCS: 99283